=== PATIENT | male | born 1990 | race Caucasian/White ===

== ENCOUNTER 2016-07-19 08:52 | Emergency (ER) | payer BC ==
[~2016-07-19] VITALS: Ht 182.9 cm; Wt 77.2 kg
[2016-07-19 08:54] VITALS: BP 123/70; PULSE 78; RESP 12; TEMP 98.3; O2SAT 98
[2016-07-19 09:11] VITALS: TEMP 99.7
--- NOTE | 2016-07-19 09:21 | PD ---
HPI Chief Complaint: Cold / Flu Symptoms Time Seen by Provider: 09:20 Travel History International Travel<30 days: No Contact w/Intl Traveler<30days: No Traveled to known affect area: No History of Present Illness HPI 26-year-old male presents to the emergency Department with complaint of sore throat that started yesterday. He had onset of nasal congestion, body aches, headache last night. Reports occasional cough. Reports onset of fever of 101.7 this morning. Took Tylenol with decreased fever. Denies lump in throat, unusual drooling, difficulty swallowing. Reports painful swallowing. Denies ear pain. Denies chest pain, shortness of breath, abdominal pain, nausea, vomiting. Reports good appetite and fluid intake. Denies change in urine or stool. Has not taken any other medications or tried any treatments to alleviate his symptoms. No known aggravating or relieving factors. Others at worker's with similar symptoms. Did not receive the flu vaccine this year. Denies allergies. Denies significant past medical history. Reports tobacco use daily. Does not have primary care provider. No other modifying factors or associated signs and symptoms. PFSH Past Medical History Tetanus Vaccination: Unknown Social History Alcohol Use: No Tobacco Use: No Substance Use: No Allergies-Medications Reported Meds & Prescriptions Reported Meds & Active Scripts Active No Active Prescriptions or Reported Medications Review of Systems Except as stated in HPI: all other systems reviewed are Neg Physical Exam Narrative GENERAL: Well-nourished, well-developed male patient, in no acute distress SKIN: Warm and dry. No rash. HEAD: Atraumatic. Normocephalic. EYES: Pupils equal and round at 3 mm with brisk reaction. No scleral icterus. No injection or drainage. PERRLA. ENT: Mucosa pink and moist. Oral pharynx with erythema; without edema or exudates. No uvular edema. No uvular, palatal, or tonsillar deviation. Airway patent. EARS: Bilateral pinnae and external canals appear within normal limits. Bilateral tympanic membranes without erythema, dullness or perforation. NECK: Trachea midline. No lymphadenopathy. CARDIOVASCULAR: Regular rate and rhythm. No murmur appreciated. RESPIRATORY: No accessory muscle use. Clear to auscultation. Breath sounds equal bilaterally. GASTROINTESTINAL: Abdomen soft, non-tender, nondistended. Hepatic and splenic margins not palpable. Bowel sounds are active 4 quadrants. MUSCULOSKELETAL: No obvious deformities. No clubbing. No cyanosis. No edema. NEUROLOGICAL: Awake and alert. Oriented 3. No obvious cranial nerve deficits. Motor grossly within normal limits. Normal speech. Moves all extremities. 5/5 strength to all extremities. PSYCHIATRIC: Appropriate mood and affect; insight and judgment normal. Data Data Last Documented VS Vital Signs Date Time Temp Pulse Resp B/P Pulse Ox O2 Delivery O2 Flow Rate FiO2 07/19/16 09:31 Room Air 07/19/16 09:11 99.7 07/19/16 08:54 78 12 123/70 98 Orders Influenzae A/B Antigen (07/19/16 09:15) Group A Rapid Strep Screen (07/19/16 09:21) Strep Culture (Group A) (07/19/16 09:25) MDM Medical Decision Making Medical Screen Exam Complete: Yes Emergency Medical Condition: Yes Medical Record Reviewed: Yes Differential Diagnosis Influenza, strep pharyngitis, bronchitis, upper respiratory infection, viral illness Narrative Course 26-year-old male with cold/flu symptoms and sore throat 2 days. Low grade fever 99.3 in ER. Nontoxic appearing. Using Centor score for management of sore throat the patient's risk of GABHS pharyngitis is Score 1=risk of GABHS 5- 10%=option to perform rapid strep swab. Influenza rapid strep ordered. 0955: Influenza and rapid strep negative. Suspecting viral illness. Discussed viral illness and symptom management with patient and he verbalized understanding and agreement with treatment plan. Magic mouthwash, Tessalon Perles, ibuprofen, Nasonex nasal spray prescribed for home. Patient is medically cleared and stable for discharge. Discussed reasons to return to the emergency department. Instructed patient to follow up with primary care provider. Patient agrees with treatment plan. The patients vital signs are stable and the patient is stable for outpatient follow-up and treatment. Patient discharged home, stable and in no acute distress. Diagnosis Primary Impression: Viral illness Referrals: Primary Care Physician Patient Instructions: Cold Symptoms (ED), General Instructions, Safe Use of Cough and Cold Medicines (ED) Departure Forms: Tests/Procedures, Work Release Enter return to work date: Jul 22, 2016 Additional Instructions: Ibuprofen or Tylenol as directed and as needed to reduce fever; may alternate ibuprofen and Tylenol as needed every 3 hours to minimize fever [id number] antihistamines or decongestants as directed and as needed for symptom management Get plenty of sleep/rest Drink plenty of fluids to prevent dehydration [place] diet to encourage nutrition such as crackers, fruit, applesauce, toast, soup etc. Use an air humidifier/turn off ceiling fans Follow-up with your primary care provider Return immediately to the emergency department with worsening of symptoms Med/Other Pt SpecificInfo: Prescription(s) given Scripts Mometasone Nasal Verdigre (Nasonex Nasal Verdigre)50 Mcg/Act Naspr2 Verdigre EACH NARE DAILY PRN (NASAL CONGESTION) #1 BOTTLE Ref 0 Prov:Jaquelin Duckworth 07/19/16 Benzonatate (Tessalon Perles)100 Mg [id number] Mg PO TID PRN (COUGH) #20 CAP Ref 0 Prov:Jaquelin Duckworth 07/19/16 Ibuprofen 800 Mg [id number] Mg PO Q6HR PRN (PAIN) #30 TAB Ref 0 Prov:Jaquelin Duckworth 07/19/16 [id number] Liq (Magic Mouthwash Adult Liq)120 Ml Susp5 Ml SWISH-SPIT Q3HR PRN (SORE THROAT) #120 ML Ref 0 Each 5mL contains: Nystatin 200,000units, Diphenhydramine 4.25mg, Viscous Lidocaine 10mg, Farooq syrup 0.8 mL Prov:Jaquelin Duckworth 07/19/16 Disposition: 01 DISCHARGE HOME Condition: Stable Jaquelin Duckworth Jul 19, 2016 09:21
[2016-07-19] MEDS ORDERED: MOME17I EACH NARE (09:57)
[2016-07-19] MEDS ORDERED: IBUP800T23 PO (09:57)
[2016-07-19] MEDS ORDERED: MAGICADU2 SWISH-SPIT (09:57)
[2016-07-19] MEDS ORDERED: BENZ100 PO (09:57)
== END 2016-07-19 10:15 | disposition home or self-care (01) ==
LOC: NEPB 08:52
DX: B34.9 Viral infection, unspecified (principal); F17.210 Nicotine dependence, cigarettes, uncomplicated; J02.9 Acute pharyngitis, unspecified
CPT/HCPCS: 87081; 87804; 87880; 99283